=== PATIENT | male | born 1950 | race Caucasian/White ===

== ENCOUNTER → 2024-01-24 09:22 | Outpatient (CLI) | payer MEDICARE, SELFPAY ==
--- NOTE | 2024-01-24 09:29 | DI.NM.S_ITS ---
PROCEDURE: NM EVANGELIST PERF SPECT REST & STR Rest and exercise myocardial perfusion SPECT with gated imaging and ejection fraction RADIOPHARMACEUTICAL: 12.9 mCi Tc-99m sestamibi IV at rest and 25 mCi Tc-99m sestamibi IV at peak exercise. A [id number]-[id number] was performed. INDICATIONS: Ventricular tachycardia, unspecified TECHNIQUE: Radiopharmaceutical was injected at peak stress test, and also at rest. SPECT images were obtained. SPECT myocardial perfusion images were displayed in short axis, horizontal long axis, and vertical long axis views. Gated images were reviewed using Teburu software. COMPARISON: None. CARDIAC STRESS: A standard Jose treadmill exercise tolerance test was performed by the patient under the supervision of an attending staff. The patient exercised for 5 minutes and 3 seconds; 7.0 METS; functional aerobic impairment (KWASI) is +18%. Hemodynamic data: There is normal blood pressure and heart rate response to exercise stress. Patient achieved 97% of maximum predicted heart rate at peak exercise. Maximum blood pressure 188/80 Symptoms: Patient denied chest pain during exercise. EKG: No diagnostic EKG changes of ischemia. Frequent PVCs occurring in couplets and triplets noted. FINDINGS: Raw data: There is good myocardial labeling by radiotracer. No significant motion artifacts. Dcnn-ri-ucqvu ratio is 0.40 (normal is less than 0.38 for sestamibi tracer, and less than 0.50 for thallium tracer). Left ventricle function: Gated images demonstrate normal left ventricle wall thickening. No segmental wall motion abnormality. No transient ischemic dilation; TID is 1.09 (normal less than 1.3). The left ventricle resting end-diastolic volume is 125 mL. Left ventricle stress ejection fraction is 76%; normal values are above 45%. Myocardial perfusion: There is normal distribution of activity in the left and right ventricular myocardium. No fixed or reversible perfusion defects. IMPRESSION: Low risk study. No evidence of exercise-induced ischemia on ECG or SPECT imaging. Exercise induced PVCs occurring in couplets and triplets. Borderline LV dilation by calculation with normal ejection fraction. Normal hemodynamic response to exercise. Slightly reduced exercise capacity. Dictated by: Liz Arroyo D.O. on 01/24/2024 at 17:03 Approved by: Liz Arroyo D.O. on 01/24/2024 at 17:09
--- NOTE | 2024-01-24 10:32 | DI.ECHO.S_ITS ---
[facility]---------+ [facility] +---------+ : : [address] [place] [address] : : : : [id number] : : : : Phone: [phone]+ Echocardiogram Report + + :Name: DUKE WOODARD Study Date: 01/24/2024 Height: 71 in : :[facility] ReadingLocation: Weight: 200 lb : : Gender: Male BSA: 2.1 m2 : :: 1950 Age: 73 yrs BP: 157/84 mmHg: :Reason For Study: VENTRICULAR TACHYCARADIA : :Ordering Physician: Polo SALINASformed By: Emily Santos : :Referring: ELTON SALINAS : + + Interpretation Summary The ejection fraction is estimated to be 60-65%. There are no obvious focal wall motion abnormalities noted but poor endocardial definition reduces the sensitivity for the detection of such. There is moderate mitral regurgitation. There are multiple regurgitant jets present. The mitral regurgitant jet is eccentrically directed. There is mild tricuspid regurgitation. The right ventricular systolic pressure is estimated to be at least 37 mmHg based on an estimated right atrial pressure of 3 mm Hg. Procedure: A two-dimensional transthoracic echocardiogram with color flow and Doppler was performed. The study quality was technically adequate. There is no prior echocardiogram noted for this patient. The patient was in sinus bradycardia with heart rates between 46-55 bpm during the exam. Left Ventricle: The left ventricle is normal in size and wall thickness. The ejection fraction is estimated to be 60-65%. There are no obvious focal wall motion abnormalities noted but poor endocardial definition reduces the sensitivity for the detection of such. Right Ventricle: The right ventricle is normal in size and function. Atria: The left atrium is mildly dilated. Right atrial size is normal. There is no Doppler evidence for an interatrial shunt. Mitral Valve: The mitral valve is normal in structure and function. There is moderate mitral regurgitation. There are multiple regurgitant jets present. The mitral regurgitant jet is eccentrically directed. Aortic Valve: The aortic valve is trileaflet. The aortic valve opens well. There is no aortic valve stenosis. No aortic regurgitation is present. Tricuspid Valve: The tricuspid valve is normal in structure and function. There is mild tricuspid regurgitation. The right ventricular systolic pressure is estimated to be at least 37 mmHg based on an estimated right atrial pressure of 3 mm Hg. Pulmonic Valve: The pulmonic valve leaflets are thin and pliable; valve motion is normal. There is no pulmonic valvular regurgitation. Great Vessels: The aortic root is normal size. The dimensions of the ascending aorta are normal. The IVC is of normal diameter and collapses greater than 50% with a sniff. This suggests a low right atrial pressure of 3 mm Hg. Pericardium/ Pleura There is no pericardial effusion. There is no pleural effusion. MMode/2D Measurements & Calculations LVIDd: 5.3 cm LVOT diam: 2.0 cm LVIDs: 3.4 cm Ao root diam: 3.5 cm FS: 36.2 % asc Aorta Diam: 3.6 cm EPSS: 0.73 cm Ao Arch Diam (Prox Trans): 3.6 cm IVSd: 0.98 cm LVPWd: 0.92 cm LV barbour. diameter/BSA (cm/m^2): 2.5 LV sys. diameter/BSA (cm/m^2): 1.6 LA A2 area: 26.8 cm2 RA long axis: 6.2 cm LA A4 area: 25.5 cm2 RA area: 21.2 cm2 LA length (vol): 6.4 cm RA vol: 62.1 ml LA vol: 90.2 ml RA : 29.5 ml/m2 LA vol index: 42.8 ml/m2 IVC diam: 1.4 cm RVD1 (basal): 3.4 cm RVD2 (mid): 2.9 cm TAPSE: 2.0 cm Doppler Measurements & Calculations Ao V2 max: 149.4 cm/sec LVOT Max Sid: 108.1 cm/sec Ao V2 mean: 100.0 cm/sec LV V1 max P.7 mmHg Ao max P.9 mmHg LV V1 VTI: 28.4 cm Ao mean P.5 mmHg MALATHI(I,D): 2.7 cm2 Ao V2 VTI: 33.1 cm MALATHI(V,D): 2.3 cm2 sev ratio: 0.86 MALATHI indexed to BSA (cm^2/m^2): 1.3 MV E max sid: 103.5 cm/sec TR max sid: 289.9 cm/sec MV A max sid: 49.2 cm/sec TR max P.6 mmHg MV E/A: 2.1 PA V2 max: 102.2 cm/sec Med Peak E' Sid: 7.7 cm/sec PA V2 mean: 75.1 cm/sec E/E' med: 13.4 PA mean P.5 mmHg Lat Peak E' Sid: 10.5 cm/sec PA pr(Accel): 37.9 mmHg E/E' lat: 9.8 E/e' average: 11.6 MV dec time: 0.18 sec SV(LVOT): 90.9 ml Reading Physician:12:04 PM
== END ==
PROVIDERS: Referring Provider Internal Medicine Cardiovascular Disease; Visit Provider Internal Medicine Cardiovascular Disease
DX: I47.20 Ventricular tachycardia, unspecified (principal); I08.1 Rheumatic disorders of both mitral and tricuspid valves
CPT/HCPCS: 78452; 93017; 93306; A9502